=== PATIENT | female | born 2000 | race Caucasian/White ===

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

== ENCOUNTER 2018-05-06 15:00 | Emergency (ER) | payer MEDICAID, OTHER ==
[~2018-05-06] VITALS: Ht 162.6 cm; Wt 97.9 kg
[~2018-05-06 15:00] MED LIST changes: -ALBU8.5H3 INH; +ALBU8.5H8 INH; +BENZ-6 PO; -BENZ100C70 PO; +CYCL10TA7 PO
[2018-05-06 15:31] VITALS: BP 146/68; PULSE 84; RESP 20; Ht 162.6 cm; Wt 97.9 kg
[2018-05-06] MEDS ORDERED: PRED20TA PO (17:00)
--- NOTE | 2018-05-06 17:02 | ERD ---
ER Documentation Chief Complaint Chief Complaint Complains of a cough x 3 weeks HPI 17-year-old female presents with cough that she states she has had for 3 weeks. Cough is dry and worse at night. She is tried DayQuil and NyQuil and Tessalon Perles with no relief. ROS All systems reviewed and are negative except as per history of present illness. Medications Home Meds Active Scripts Prednisone* (Prednisone*) 20 Mg Tab, 60 MG PO DAILY for 5 Days, TAB Prov:ARIANE SCHULTZ PA-C 05/06/18 Cyclobenzaprine Hcl* (Cyclobenzaprine Hcl*) 10 Mg Tablet, 10 MG PO TID, #15 TAB Prov:ALCIDES CHU NP 11/14/16 Acetaminophen with Codeine (Acetaminophen-Cod #3 Tablet) 1 Each Tablet, 1 TAB PO Q6H PRN for PAIN, #7 TAB Prov:CASS CONTRERAS PA-C 11/13/16 Ibuprofen* (Motrin*) 600 Mg Tab, 600 MG PO Q6, #30 TAB Prov:ACSS CONTRERAS PA-C 11/13/16 Loratadine* (Loratadine*) 10 Mg Tablet, 10 MG PO DAILY, #30 TAB Prov:BESSY TALBERT PA-C 03/04/16 Albuterol Sulfate* (Proair HFA*) 8.5 Gm Hfa.aer.ad, 2 PUFF INH Q4, #1 INHALER Prov:BESSY TALBERT PA-C 03/04/16 Benzonatate* (Tessalon Perle*) 100 Mg Capsule, 100 MG PO Q8H PRN for COUGH for 14 Days, CAP Prov:BESSY TALBERT PA-C 03/04/16 Ibuprofen* (Motrin*) 600 Mg Tab, 600 MG PO Q6, #30 TAB Prov:BESSY TALBERT PA-C 03/04/16 Prednisone* (Prednisone*) 20 Mg Tab, 40 MG PO DAILY for 4 Days, TAB Prov:MAAME FARLEY 04/12/15 Hydrocortisone* Topical (Hydrocortisone* Topical) 1%-28.35 Gm Cream..g., 1 APPLIC TOP Q6 PRN for ITCHING, #1 TUB Prov:MAAME FARLEY 04/12/15 Reported Medications Loratadine (Alavert) 10 Mg Tablet 03/03/09 Allergies Allergies: Coded Allergies: No Known Allergy (Unverified , 11/15/16) PMhx/Soc History of Surgery: No Hx Neurological Disorder: No Hx Respiratory Disorders: No Hx Cardiac Disorders: No Hx Miscellaneous Medical Probl: Yes (ALLERGY TO GRASS) Hx Alcohol Use: No Hx Substance Use: No Hx Tobacco Use: No FmHx Family History: No diabetes Physical Exam Vitals Vital Signs Date Temp Pulse Resp B/P (MAP) Pulse Ox O2 O2 Flow FiO2 Time Delivery Rate 05/06/18 99.1 84 20 146/68 96 15:31 (94) Physical Exam Const: No acute distress Head: Atraumatic Eyes: Normal Conjunctiva ENT: Normal External Ears, Nose and Mouth. Neck: Full range of motion. No meningismus. Resp: Clear to auscultation bilaterally Cardio: Regular rate and rhythm, no murmurs Procedures/MDM This is an otherwise healthy, well appearing patient presenting with uncomplicated URI symptoms, likely viral in etiology. Patient is non-toxic and well hydrated. I have low suspicion for pneumonia or significant bacterial disease. Patient will be treated with outpatient supportive care; no indications for antibiotics at this time. Discharge instructions have included return precautions and close follow up with PMD. Patient counseled regarding my diagnostic impression and care plan. Prior to discharge all questions answered. Pt agrees with treatment plan and understands strict return precautions. Pt is instructed to follow up with primary care provider within 24-48 hours. Precautionary instructions provided including instructions to return to the ER if not improving or for any worsening or changing symptoms or concerns. Departure Diagnosis: Primary Impression: URI (upper respiratory infection) Condition: Stable Patient Instructions: Bronchitis, No Antibiotic (Adult) Additional Instructions: Call your primary care doctor TOMORROW for an appointment during the next 1-2 days.See the doctor sooner or return here if your condition worsens before your appointment time. ARIANE SCHULTZ PA-C May 06, 2018 17:02
== END 2018-05-06 17:14 | disposition home or self-care (01) ==
LOC: FTE 15:00
DX: J06.9 Acute upper respiratory infection, unspecified (principal)
CPT/HCPCS: 99283

== ENCOUNTER → 2018-06-26 | Emergency (ER) | payer SELFPAY ==
[~2018-06-26] VITALS: Ht 162.6 cm; Wt 94.6 kg
[~2018-06-26] MED LIST changes: +FAMO-96 PO; +FAMOTIDINE 20 MG TAB PO STA; +KETOROLAC 30 MG INJ IM STA; +LIDOCAINE/MYLANTA 40 ML BTL PO STA; +ONDA4TAB14 PO; +TRAM50TA2 PO
[2018-06-26 09:53] VITALS: BP 126/77; PULSE 72; RESP 19; Ht 162.6 cm; Wt 94.6 kg
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
== END | disposition home or self-care (01) ==
LOC: FTE 09:50
DX: R10.13 Epigastric pain (principal)
CPT/HCPCS: 36415; 74176; 76705; 80053; 81001; 81025; 83690; 85025; 96372; 99285; J1885

== ENCOUNTER 2018-10-23 22:01 | Emergency (ER) | payer OTHER ==
[~2018-10-23] VITALS: Ht 160 cm; Wt 92.1 kg
[~2018-10-23 22:01] MED LIST changes: +AMOX500C2 PO; -FAMOTIDINE 20 MG TAB PO STA; +IBUP800T48 PO; -KETOROLAC 30 MG INJ IM STA; -LIDOCAINE/MYLANTA 40 ML BTL PO STA
[2018-10-23 22:04] VITALS: BP 139/68; PULSE 97; RESP 19; Ht 160 cm; Wt 92.1 kg
== END 2018-10-24 00:34 | disposition home or self-care (01) ==
LOC: E/R 22:01
DX: J02.9 Acute pharyngitis, unspecified (principal)
CPT/HCPCS: 99283